=== PATIENT | male | born 1960 | race Caucasian/White ===

== ENCOUNTER 2019-07-25 18:18 | Emergency (ER) | payer BC ==
[2019-07-25 18:21] VITALS: Ht 175.3 cm
[2019-07-25 21:57] VITALS: BP 172/96
== END 2019-07-25 21:57 | disposition home or self-care (01) ==
LOC: ED 18:18
DX: Z79.899 Other long term (current) drug therapy (principal); M62.838 Other muscle spasm; F32.9 Major depressive disorder, single episode, unspecified
CPT/HCPCS: J7030